=== PATIENT | male | born 1985 | race Caucasian/White ===

== ENCOUNTER 2023-03-16 09:26 | Outpatient (AMB) | payer OTHER, SELFPAY ==
--- NOTE | 2023-03-16 09:38 | HO.NEPHOV_ITS ---
HPI HPI Comments History of Present Illness Details Yoan was seen in the office for follow-up of his hypertension. He has history of hypercalcemia and was found to have primary hyperparathyroidism. He underwent parathyroidectomy. At that time he also was found to have thyroid cancer which was taken out. He does not have any further nephrolithiasis. He is followed up by Dr. Frost. His blood pressure has been better. His weight is stable. He tries to comply with low-sodium diet. He denies chest pain, shortness of breath, nausea, vomiting, diarrhea, orthostatic symptoms, hematuria or pedal edema. He is compliant with his medications. He otherwise feels well. [facility] Medical History (Updated 03/30/23 @ 20:49 by Nigel Eli MD) Double ureter Hypercalcemia Renal calculus Essential (primary) hypertension Surgical History (Updated 03/16/23 @ 09:43 by Narda Carreno MA) History of kidney surgery History of thyroid surgery Family History (Updated 03/16/23 @ 09:43 by Narda Carreno MA) Father Diabetes Mother Hypertension Social History (Updated 03/16/23 @ 09:43 by Narda Carreno MA) Alcohol intake: never Patient Tobacco Use Status: Never used Tobacco Vital Signs 03/16/23 09:39 Height 5 ft 10 in Weight 272 lb 2 oz BMI 39.0 BP 148/90 H Blood Pressure Location Rt brachial Position Sitting Pulse 67 Pulse Source Pulse Oximeter Physical Exam Vital Signs: Last Vital Signs Pulse 67 03/16/23 09:39 BP 148/90 H 03/16/23 09:39 BMI result Body Mass Index 39.0 Const General: comfortable and no acute distress Orientation/consciousness: patient oriented x3 HEENT Head: Yes normocephalic Mouth: Normal oral and palatal mucosa present Eyes EOM: EOMs intact bilaterally Neck Neck: Yes supple Resp Auscultation: clear to auscultation bilaterally Cardio Jugular venous distension: no JVD Rate: regular rate GI Palpation (GI): Soft to palpation Auscultation: normal bowel sounds General: Yes no CVA tenderness Back/Spine/Pelvis Back: no CVA tenderness Skin General skin exam: no rashes or lesions noted Neuro General: patient oriented x3 and moves all extremities Extrem General: Yes no pedal edema Assessment & Plan Assessment & Plan (1) Renal calculus: Code(s): N20.0 - Calculus of kidney (2) Essential (primary) hypertension: Code(s): I10 - Essential (primary) hypertension (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 He underwent parathyroidectomy and thyroid cancer excision. His weight is stable. He needs to lose more weight. He needs to be compliant with low-sodium diet. He should maintain good hydration. He follows up with Endocrinology. I may add chlorthalidone and or potassium citrate with time after monitoring serum calcium. His sleep study was negative. He does not have any recurrence of or renal calculus. I shall arrange a renal ultrasound follow-up in the coming visits looking for renal calculus. He needs to increase the citrate in the diet. I did not make any medication changes today. Follow-up lab work ordered. Answered all questions. Follow-up given. Orders: Orders Vitamin D 25-OH Total 03/16/23 N20.0 - Calculus of kidney, I10 - Essential (primary) hypertension Blood Urea Nitrogen 03/16/23 N20.0 - Calculus of kidney, I10 - Essential (primary) hypertension Creatinine 03/16/23 N20.0 - Calculus of kidney, I10 - Essential (primary) hypertension Calcium 03/16/23 N20.0 - Calculus of kidney, I10 - Essential (primary) hypertens ion Parathyroid Hormone Intact 03/16/23 N20.0 - Calculus of kidney, I10 - Essential (primary) hypertension Electrolytes 03/16/23 N20.0 - Calculus of kidney, I10 - Essential (primary) hypertension Coding Level of Care Code Est Pt Level 4 (15910) Diagnoses Renal calculus N20.0 Essential (primary) hypertension I10 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 Results Reviewed Nephrology Results: No Data to Display
[2023-03-16 09:39] VITALS: BP 148/90; PULSE 67; BMI 39.0
== END 2023-03-16 10:11 | disposition home or self-care (01) ==
PROVIDERS: PCP Internal Medicine; Visit Provider Internal Medicine Nephrology
DX: N20.0 Calculus of kidney (principal); I10 Essential (primary) hypertension; Q62.8 Other congenital malformations of ureter
CPT/HCPCS: 99214

== ENCOUNTER → 2023-03-16 09:26 | Outpatient (BNVA) | payer OTHER, SELFPAY | PROVIDERS: PCP Internal Medicine; Visit Provider Internal Medicine Nephrology ==

== ENCOUNTER 2023-05-19 09:46 | Outpatient (AMB) | payer OTHER, SELFPAY ==
[2023-05-19 09:49] VITALS: BP 126/88; PULSE 66; O2SAT 98; BMI 39.1
--- NOTE | 2023-05-19 09:49 | MHC.OFFVIS ---
Intake Vital Signs 05/19/23 09:49 Height 5 ft 10 in Weight 272 lb 6 oz BMI 39.1 BP 126/88 Blood Pressure Location Rt brachial Position Sitting Pulse 66 Pulse Source Pulse Oximeter Pulse Oximetry (%) 98 Oxygen Delivery Method Room Air Intake Visit Reasons: 2 mo fu/ LVM Intake Note: Pt presents to the office today for a 2 month follow up. Pt states he is feeling overall well and denies any major concerns at this time. Allergies No Known Allergies Allergy (Verified 05/19/23 09:51) HPI HPI Comments History of Present Illness Details Yoan was seen in the office for follow-up of his hypertension. He has history of hypercalcemia and was found to have primary hyperparathyroidism. He underwent parathyroidectomy. At that time he also was found to have thyroid cancer which was taken out. He does not have any further nephrolithiasis. He is followed up by Dr. Frost. His blood pressure has been better. His weight is stable. He tries to comply with low-sodium diet. He denies chest pain, shortness of breath, nausea, vomiting, diarrhea, orthostatic symptoms, hematuria or pedal edema. He is compliant with his medications. He is known to have ectopic duplex ureters. He otherwise feels well [facility] Medical History Double ureter Hypercalcemia Renal calculus Essential (primary) hypertension Surgical History History of kidney surgery History of thyroid surgery Family History Father Diabetes Mother Hypertension Social History Alcohol intake: never Patient Tobacco Use Status: Never used Tobacco Physical Exam Vital Signs: Last Vital Signs Pulse 66 05/19/23 09:49 BP 126/88 05/19/23 09:49 Pulse Ox 98 05/19/23 09:49 Oxygen Delivery Method Room Air 05/19/23 09:49 BMI result Body Mass Index 39.1 Const General: comfortable and no acute distress Orientation/consciousness: patient oriented x3 HEENT Head: Yes normocephalic Mouth: Normal oral and palatal mucosa present Eyes EOM: EOMs intact bilaterally Neck Neck: Yes supple Resp Auscultation: clear to auscultation bilaterally Cardio Jugular venous distension: no JVD Rate: regular rate GI Palpation (GI): Soft to palpation Auscultation: normal bowel sounds General: Yes no CVA tenderness Back/Spine/Pelvis Back: no CVA tenderness Skin General skin exam: no rashes or lesions noted Neuro General: patient oriented x3 and moves all extremities Extrem General: Yes no pedal edema Assessment & Plan Assessment & Plan (1) 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 He underwent parathyroidectomy and thyroid cancer excision. His weight is stable. He needs to lose more weight. He needs to be compliant with low-sodium diet. He should maintain good hydration. He follows up with Endocrinology. I may add chlorthalidone and or potassium citrate with time after monitoring serum calcium. His sleep study was negative. He does not have any recurrence of or renal calculus. He had a renal ultrasound by Dr Frost in Mar 2023 and was told that he has no stones. I did not make any medication changes today. Follow-up lab work ordered. Answered all questions. Follow-up given. Coding Level of Care Code Est Pt Level 3 (50700) Diagnoses 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 Renal calculus N20.0 Essential (primary) hypertension I10
== END 2023-05-19 10:17 | disposition home or self-care (01) ==
PROVIDERS: PCP Internal Medicine; Visit Provider Internal Medicine Nephrology
DX: Q62.8 Other congenital malformations of ureter (principal); N20.0 Calculus of kidney; I10 Essential (primary) hypertension
CPT/HCPCS: 99213

== ENCOUNTER → 2023-05-19 09:46 | Outpatient (BNVA) | payer OTHER, SELFPAY | PROVIDERS: PCP Internal Medicine; Visit Provider Internal Medicine Nephrology ==

== ENCOUNTER 2023-11-17 09:26 | Outpatient (AMB) | payer OTHER, SELFPAY ==
--- NOTE | 2023-11-17 09:31 | HO.NEPHOV_ITS ---
Vital Signs 11/17/23 09:32 Height 5 ft 10 in Weight 265 lb BMI 38.0 BP 130/90 H Blood Pressure Location Lt brachial Position Sitting Pulse 71 Pulse Source Pulse Oximeter Pulse Oximetry (%) 98 Oxygen Delivery Method Room Air Intake Visit Reasons: 6 mon follow up/ LVM Lapel Baster Required: No Accompanied by: Self / Same As Patient Allergies No Known Allergies Allergy (Verified 11/17/23 09:34) HPI Comments Details: Yoan was seen in the office for follow-up of his hypertension. He has history of hypercalcemia and was found to have primary hyperparathyroidism. He underwent parathyroidectomy. At that time he also was found to have thyroid cancer which was taken out. He does not have any further nephrolithiasis. He is followed up by Dr. Frost. His blood pressure has been better. His weight is stable. He tries to comply with low-sodium diet. He denies chest pain, shortness of breath, nausea, vomiting, diarrhea, orthostatic symptoms, hematuria or pedal edema. He is compliant with his medications. He is known to have ectopic duplex ureters. He otherwise feels well [facility] Medical History Double ureter Hypercalcemia Renal calculus Essential (primary) hypertension Surgical History History of kidney surgery History of thyroid surgery Family History Father Diabetes Mother Hypertension Social History Alcohol intake: never Patient Tobacco Use Status: Never used Tobacco Review of Systems Const All systems reviewed & are unremarkable except as noted in HPI and below Physical Exam Vital Signs: Last Vital Signs Pulse 71 11/17/23 09:32 BP 136/100 H 11/17/23 09:32 Pulse Ox 98 11/17/23 09:32 Oxygen Delivery Method Room Air 11/17/23 09:32 BMI result Body Mass Index 38.0 Const General: comfortable and no acute distress Orientation/consciousness: patient oriented x3 HEENT Head: Yes normocephalic Mouth: Normal oral and palatal mucosa present Eyes EOM: EOMs intact bilaterally Neck Neck: Yes supple Resp Auscultation: clear to auscultation bilaterally Cardio Jugular venous distension: no JVD Rate: regular rate GI Palpation (GI): Soft to palpation Auscultation: normal bowel sounds General: Yes no CVA tenderness Back/Spine/Pelvis Back: no CVA tenderness Skin General skin exam: no rashes or lesions noted Neuro General: patient oriented x3 and moves all extremities Extrem General: Yes no pedal edema Results Reviewed Nephrology Results: No Data to Display Assessment & Plan Assessment & Plan (1) Essential (primary) hypertension: Code(s): I10 - Essential (primary) hypertension Category: Medical (2) Renal calculus: Code(s): N20.0 - Calculus of kidney Category: Medical (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 He underwent parathyroidectomy and thyroid cancer excision. His weight is stable. He needs to lose more weight. He needs to be compliant with low-sodium diet. He should maintain good hydration. He follows up with Endocrinology. I may add chlorthalidone and or potassium citrate with time after monitoring serum calcium. His sleep study was negative. He does not have any recurrence of or renal calculus. He had a renal ultrasound by Dr Frost in Mar 2023 and was told that he has no stones. I did not make any medication changes today. Follow-up lab work ordered. Answered all questions. Follow-up given. Orders: Orders Blood Urea Nitrogen Today I10 - Essential (primary) hypertension, N20.0 - Calculus of kidney, Q62.8 - Other congenital malformations of ureter Electrolytes Today I10 - Essential (primary) hypertension, N20.0 - Calculus of kidney, Q62.8 - Other congenital malformations of ureter Creatinine Today I10 - Essential (primary) hypertension, N20.0 - Calculus of kidney, Q62.8 - Other congenital malformations of ureter Calcium Today I10 - Essential (primary) hypertension, N20.0 - Calculus of kidney, Q62.8 - Other congenital malformations of ureter Parathyroid Hormone Intact Today I10 - Essential (primary) hypertension, N20.0 - Calculus of kidney, Q62.8 - Other congenital malformations of ureter Coding Level of Care Code Est Pt Level 4 (86977) Diagnoses Essential (primary) hypertension I10 Renal calculus N20.0 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
[2023-11-17 09:32] VITALS: BP 130/90; PULSE 71; O2SAT 98; BMI 38.0
== END 2023-11-17 09:57 | disposition home or self-care (01) ==
PROVIDERS: PCP Internal Medicine; Visit Provider Internal Medicine Nephrology
DX: I10 Essential (primary) hypertension (principal); N20.0 Calculus of kidney; Q62.8 Other congenital malformations of ureter
CPT/HCPCS: 99214

== ENCOUNTER → 2023-11-17 09:26 | Outpatient (BNVA) | payer OTHER, SELFPAY | PROVIDERS: PCP Internal Medicine; Visit Provider Internal Medicine Nephrology ==

== ENCOUNTER 2024-05-19 09:37 | Outpatient (AMB) | payer OTHER, SELFPAY ==
--- NOTE | 2024-05-19 09:36 | HO.NEPHOV_ITS ---
Vital Signs 05/19/24 09:39 Height 5 ft 10 in Weight 261 lb 4 oz BMI 37.5 BP 130/80 Blood Pressure Location Rt brachial Position Sitting Pulse 66 Pulse Source Pulse Oximeter Pulse Oximetry (%) 95 Oxygen Delivery Method Room Air Intake Visit Reasons: Duplex ectopic ureters/ LVM Driveway Attendant Required: No Accompanied by: Self / Same As Patient Allergies No Known Allergies Allergy (Verified 05/19/24 09:39) HPI Comments Details: Yoan was seen in the office for follow-up of his hypertension. He has history of hypercalcemia and was found to have primary hyperparathyroidism. He underwent parathyroidectomy. At that time he also was found to have thyroid cancer which was taken out. He does not have any further nephrolithiasis. He is followed up by Dr. Frost. His blood pressure has been better. His weight is stable. He tries to comply with low-sodium diet. He denies chest pain, shortness of breath, nausea, vomiting, diarrhea, orthostatic symptoms, hematuria or pedal edema. He is compliant with his medications. He is known to have ectopic duplex ureters. He otherwise feels well [facility] Medical History Double ureter Hypercalcemia Renal calculus Essential (primary) hypertension Surgical History History of kidney surgery History of thyroid surgery Family History Father Diabetes Mother Hypertension Social History Alcohol intake: never Patient Tobacco Use Status: Never used Tobacco Review of Systems Const All systems reviewed & are unremarkable except as noted in HPI and below Physical Exam Vital Signs: Last Vital Signs Pulse 66 05/19/24 09:39 BP 150/100 H 05/19/24 09:39 Pulse Ox 95 05/19/24 09:39 Oxygen Delivery Method Room Air 05/19/24 09:39 BMI result Body Mass Index 37.5 Const General: comfortable and no acute distress Orientation/consciousness: patient oriented x3 HEENT Head: Yes normocephalic Mouth: Normal oral and palatal mucosa present Eyes EOM: EOMs intact bilaterally Neck Neck: Yes supple Resp Auscultation: clear to auscultation bilaterally Cardio Jugular venous distension: no JVD Rate: regular rate GI Palpation (GI): Soft to palpation Auscultation: normal bowel sounds General: Yes no CVA tenderness Back/Spine/Pelvis Back: no CVA tenderness Skin General skin exam: no rashes or lesions noted Neuro General: patient oriented x3 and moves all extremities Extrem General: Yes no pedal edema Results Reviewed Nephrology Results: No Data to Display Assessment & Plan Assessment & Plan (1) Essential (primary) hypertension: Code(s): I10 - Essential (primary) hypertension Category: Medical (2) Renal calculus: Code(s): N20.0 - Calculus of kidney Category: Medical (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 He underwent parathyroidectomy and thyroid cancer excision. His weight is stable. He needs to lose more weight. He needs to be compliant with low-sodium diet. He should maintain good hydration. He follows up with Endocrinology. I may add chlorthalidone and or potassium citrate with time after monitoring serum calcium. His sleep study was negative. He does not have any recurrence of or renal calculus. He had a renal ultrasound by Dr Frost in Mar 2023 and was told that he has no stones. I did not make any medication changes today. Follow-up lab work ordered. Answered all questions. 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
[2024-05-19 09:39] VITALS: BP 130/80; PULSE 66; O2SAT 95; BMI 37.5
--- OUTSIDE RECORDS SUMMARY | 2024-05-19 09:39 | XMS_ITS | Encounter Summary ---
Author Organization [facility] Address [address] [place] [address] Phone Care Team Providers Care Provider Relations Rep Name Role Phone Juancarlos Kline DO Primary Care Provider [phone] Reason for Visit * Reason Comments Med Refill Encounter Details Date Type Department Care Team (Late st Contact Info) Description 12/21/2022 Refill [facility] [address] [place] [id number] Nigel Eli MD Social History Tobacco Use Types Packs/Day Years Used Date Smoking Tobacco: Never Smokeless Tobacco: Never Alcohol Use Standard Drinks/Week Comments Yes 0 (1 standard drink = 0.6 oz pure alcohol) Alcoholic Drinks/day: Occasional social drink Sex and Gender Information Value Date Recorded Sex Assigned at Not on file Legal Sex Male 4:49 PM EST Gender Identity Not on file Sexual Orientation Not on file documented as of this encounter Plan of Treatment Not on file documented as of this encounter Visit Diagnoses Not on filedocumented in this encounter Care Teams Provider Relations Rep Relationship Specialty Start Date End Date Juancarlos Kline DO [address] [place] [address] PCP - General 04/23/20 documented as of this encounter
--- OUTSIDE RECORDS SUMMARY | 2024-05-19 09:40 | XMS_ITS | Clinical Summary ---
Author Organization [facility] Address [address] [facility] [address] [place] [address] Phone Care Team Providers Care Aircraft Dispatcher Name Role Phone Juancarlos Kline DO Primary Care Provider Allergies No known active allergies Medications metoprolol tartrate (LOPRESSOR) 50 MG tablet Take 1 tablet (50 mg total) by mouth in the morning and 1 tablet (50 mg total) in the evening. 90 tablet 5 07/30/2021 Active cetirizine (ZyrTEC) 10 MG tablet Take 10 mg by mouth 1 (one) time each day Active Cholecalciferol (Vitamin D3) 125 MCG (5000 UT) chewable tablet Chew Active losartan (COZAAR) 100 MG tablet Take 1 tablet (100 mg total) by mouth at bed time 90 tablet 3 12/29/2022 Active Active Problems Problem Noted Date Diagnosed Date Testosterone level below reference range 023 Obesity 08/28/2022 Renal calculus 07/02/2021 Hypertension 04/08/2021 Double ureter 01/10/2021 Essential hypertension 01/10/2021 Hypercalcemia 01/10/2021 Large kidney 01/10/2021 Acute conjunctivitis of left eye 12/05/2020 Family History Medical History Relation Comments Diabetes Father Hypertension Mother Diabetes Sibling Relation Status Comments Father Alive Mother Sibling Social History Tobacco Use Types Packs/Day Years Used Date Smoking Tobacco: Never Smokeless Tobacco: Never Tobacco Cessation:Counseling Given: Not Answered Alcohol Use Standard Drinks/Week Comments Yes 0 (1 standard drink = 0.6 oz pure alcohol) Alcoholic Drinks/day: Occasional social drink Sex and Gender Information Value Date Recorded Sex Assigned at Not on file Legal Sex Male 4:49 PM EST Gender Identity Not on file Sexual Orientation Not on file Last Filed Vital Signs Vital Sign Reading Time Taken Comments Blood Pressure 132/88 08/28/2022 4:23 PM EDT Pulse 67 08/28/2022 4:23 PM EDT Temperature - - Respiratory Rate - - Oxygen Saturation 99% 02/24/2022 2:27 PM EST Inhaled Oxygen Concentration - - Weight 120 kg (265 lb 9.6 oz) 08/28/2022 4:23 PM EDT Height 177.8 cm (5' 10 ) 02/24/2022 2:27 PM EST Body Mass Index 38.11 02/24/2022 2:27 PM EST Plan of Treatment Health Maintenance Due Date Last Done Comments Pneumococcal Vaccine: Pediat rics (0 to 5 Years) and At-Risk Patients (6 to 64 Years) (1 of 2 - PCV) 01/25/1992 Hepatitis B Vaccine (1 of 3 - 19+ 3-dose series) 01/24 Influenza Vaccine (#1) 2023 Insurance [employer] Care Teams Aircraft Dispatcher Relationship Specialty Start Date End Date Juancarlos Kline DO [address] [place] [address] [place] PCP - General 04/23/20
--- OUTSIDE RECORDS SUMMARY | 2024-05-19 09:40 | XMS_ITS | Encounter Summary ---
Author Organization [facility] Address [address] [place] [address] Phone Care Team Providers Care Motion Picture Set Worker Name Role Phone Juancarlos Kline DO Primary Care Provider [phone] Encounter Details Date Type Department Care Team (Late st Contact Info) Description 07/15/2021 Telephone [facility] [address] [place] [address] Nigel Eli MD Social History Tobacco Use [...] on file documented as of this encounter Miscellaneous Notes * Telephone Encounter - Carrie Bess - 07/15/2021 1:38 PM EDT Pt called, he would like to review the findings from his CT scan on 07/12/21 with you. Please call him back at [phone] Thank you documented in this encounter Plan of Treatment Not on file documented as of this encounter Visit Diagnoses Not on filedocumented in this encounter Care Teams Motion Picture Set Worker Relationship Specialty Start Date End Date Juancarlos Kline DO [address] [place] [address] PCP - General 04/23/20 documented as of this encounter
--- OUTSIDE RECORDS SUMMARY | 2024-05-19 09:40 | XMS_ITS | Clinical Summary ---
Author Organization [facility] Address [address] [place] [address] Care Team Providers Care Boat Dispatcher Name Role Phone Unavailable Primary Care Provider Unavailabl e Social History Tobacco Use Types Packs/Day Years Used Date Smoking Tobacco: Never Assessed Sex and Gender Information Value Date Recorded Sex Assigned at Not on file Gender Identity Not on file Sexual Orientation Not on file Plan of Treatment Health Maintenance Due Date Last Done Comments DTaP,Tdap,and Td Vaccines (1 - Tdap) 2005 Hepatitis B Vaccines (1 of 3 - 19+ 3-dose series) 2005 Cholesterol Screening (Lipid Panel) 03/15/2022 Depression Screening 03/15/2022 HIV Screening 03/15/2022 Hepatitis C Screening 03/15/2022 Social Influencers of Health Screening 03/15/2022 COVID-19 Vaccine (2023-2 5 season) 2023 Influenza Vaccine (#1) 2023 HIB Vaccines Aged Out No longer eligi ble based on patient's age to complete this topic HPV Vaccines Aged Out No longer eligi ble based on patient's age to complete this topic Hepatitis A Vaccines Aged Out No long er eligible based on patient's age to complete this topic IPV Vaccines Aged Out No longer eligi ble based on patient's age to complete this topic MMR Vaccines Aged Out No longer eligi ble based on patient's age to complete this topic Meningococcal ACWY Vaccine Aged Out N o longer eligible based on patient's age to complete this topic Pneumococcal Vaccine: Pediat rics (0 to 5 Years) and At-Risk Patients (6 to 64 Years) Aged Out No longer eligible b ased on patient's age to complete this topic RSV Immunization Patients Un beny 20 months Aged Out No longer eligible b ased on patient's age to complete this topic Varicella Vaccines Aged Out No longer eligible based on patient's age to complete this topic
== END 2024-05-19 09:56 | disposition home or self-care (01) ==
LOC: HO.HKAS 09:37
PROVIDERS: PCP Internal Medicine; Visit Provider Internal Medicine Nephrology
DX: I10 Essential (primary) hypertension (principal); N20.0 Calculus of kidney; Q62.8 Other congenital malformations of ureter
CPT/HCPCS: 99214

== ENCOUNTER 2024-12-08 10:19 | Outpatient (AMB) | payer OTHER, SELFPAY ==
--- NOTE | 2024-12-08 10:26 | HO.NEPHOV_ITS ---
Vital Signs 12/08/24 10:28 Height 5 ft 10 in Weight 267 lb BMI 38.3 BP 130/90 H Blood Pressure Location Lt brachial Position Sitting Pulse 59 Pulse Source Pulse Oximeter Pulse Oximetry (%) 99 Oxygen Delivery Method Room Air Intake Visit Reasons: Duplex ectopic ureters-LVM Manager Solution Required: No Accompanied by: Self / Same As Patient Allergies No Known Allergies Allergy (Verified 12/08/24 10:27) HPI Comments Details: Yoan was seen in the office for follow-up of his hypertension. He has history of hypercalcemia and was found to have primary hyperparathyroidism. He underwent parathyroidectomy. At that time he also was found to have thyroid cancer which was taken out. He does not have any further nephrolithiasis. He is followed up by Dr. Frost. His blood pressure has been better. He tries to comply with low-sodium diet. He denies chest pain, shortness of breath, nausea, vomiting, diarrhea, orthostatic symptoms, hematuria or pedal edema. He is compliant with his medications. He is known to have ectopic duplex ureters. He otherwise feels well FOR[facility] Medical History Double ureter Hypercalcemia Renal calculus Essential (primary) hypertension Surgical History History of kidney surgery History of thyroid surgery Family History Father Diabetes Mother Hypertension Social History Alcohol intake: never Patient Tobacco Use Status: Never used Tobacco Review of Systems Const All systems reviewed & are unremarkable except as noted in HPI and below Physical Exam Const General: comfortable and no acute distress Orientation/consciousness: patient oriented x3 HEENT Head: Yes normocephalic Mouth: Normal oral and palatal mucosa present Eyes EOM: EOMs intact bilaterally Neck Neck: Yes supple Resp Auscultation: clear to auscultation bilaterally Cardio Jugular venous distension: no JVD Rate: regular rate GI Palpation (GI): Soft to palpation Auscultation: normal bowel sounds General: Yes no CVA tenderness Back/Spine/Pelvis Back: no CVA tenderness Skin General skin exam: no rashes or lesions noted Neuro General: patient oriented x3 and moves all extremities Extrem General: Yes no pedal edema Assessment & Plan Assessment & Plan (1) Essential (primary) hypertension: Code(s): I10 - Essential (primary) hypertension Category: Medical (2) Renal calculus: Code(s): N20.0 - Calculus of kidney Category: Medical (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 He underwent parathyroidectomy and thyroid cancer excision. He needs to lose more weight. He needs to be compliant with low-sodium diet. He should maintain good hydration. He follows up with Endocrinology. I may add chlorthalidone and or potassium citrate with time after monitoring serum calcium. His sleep study was negative. He does not have any recurrence of or renal calculus. He had a renal ultrasound by Dr Frost in Mar 2023 and was told that he has no stones. I did not make any medication changes today. Follow-up lab work ordered. Answered all questions. Follow-up given Orders: Orders Blood Urea Nitrogen 6 Months I10 - Essential (primary) hypertension, N20.0 - Calculus of kidney, Q62.8 - Other congenital malformations of ureter Electrolytes 6 Months I10 - Essential (primary) hypertension, N20.0 - Calculus of kidney, Q62.8 - Other congenital malformations of ureter Creatinine 6 Months I10 - Essential (primary) hypertension, N20.0 - Calculus of kidney, Q62.8 - Other congenital malformations of ureter Coding Level of Care Code Est Pt Level 4 (76356) Diagnoses Essential (primary) hypertension I10 Renal calculus N20.0 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
[2024-12-08 10:28] VITALS: BP 130/90; PULSE 59; O2SAT 99; BMI 38.3
--- OUTSIDE RECORDS SUMMARY | 2024-12-08 11:39 | XMS_ITS | Clinical Summary ---
Author Organization [facility] Address [address] [facility] [address] [place] [address] Phone Care Team Providers Care Supervisor Polishing Name Role Phone Juancarlos Kline DO Primary Care Provider [phone] Allergies No known active allergies Medications metoprolol [...] Health Maintenance Due Date Last Done Comments Hepatitis B Vaccine (1 of 3 - 19+ 3-dose series) 01/24 Pneumococcal Vaccine: Peds ( 0 to 5 Years) and At-Risk Patients (6 to 49 Years) (1 of 2 - PCV) 2005 Influenza Vaccine (#1) 2024 Insurance [email or web address] Care Teams Supervisor Polishing Relationship Specialty Start Date End Date Juancarlos Kline DO [address] [place] [address] [place] PCP - General 04/23/20
--- OUTSIDE RECORDS SUMMARY | 2024-12-08 11:39 | XMS_ITS | Clinical Summary ---
Author Organization [facility] ity Address [address] [place] [address] Care Team Providers Care Occupational Therapy Technician Name Role Phone Unavailable Primary Care Provider Unavailabl e Social History Tobacco Use Types Packs/Day Years Used Date Smoking Tobacco: Never Assessed Sex and Gender Information Value Date Recorded Sex Assigned at Not on file Legal Sex Male 5:25 PM EST Gender Identity Not on file Sexual Orientation Not on file Plan of Treatment Health Maintenance Due Date Last Done Comments DTaP,Tdap,and Td Vaccines (1 - Tdap) 2005 Hepatitis B Vaccines (1 of 3 - 19+ 3-dose series) 2005 COVID-19 Vaccine ( - 2023-2 5 season) 2023 Depression Screening 04/13/2024 Influenza Vaccine (#1) 2024 HIB Vaccines Aged Out No longer eligi [...] patient's age to complete this topic Meningococcal B Vaccine Aged Out No l onger eligible based on patient's age to complete this topic Pneumococcal Vaccine: Pediat rics (0 to 5 Years) and At-Risk Patients (6 to 49 Years) Aged Out No longer eligible b ased on patient's age to complete this topic RSV Immunization Patients Un beny 20 months Aged Out No longer eligible b ased on patient's age to complete this topic Varicella Vaccines Aged Out No longer eligible based on patient's age to complete this topic
--- OUTSIDE RECORDS SUMMARY | 2024-12-08 11:39 | XMS_ITS | Encounter Summary ---
Author Organization [facility] Address [address] [place] [address] Phone Care Team Providers Care Silk Crepe Machine Operator Name Role Phone Juancarlos Kline DO Primary Care Provider [phone] Encounter Details Date Type Department Care Team (Late st Contact Info) Description 07/15/2021 Telephone [facility] [address] [place] [address] Nigel Eli MD Social History [...] with you. Please call him back at [phone] Thank you documented in this encounter Plan of Treatment Not on file documented as of this encounter Visit Diagnoses Not on filedocumented in this encounter Care Teams Silk Crepe Machine Operator Relationship Specialty Start Date End Date Juancarlos Kline DO [address] [place] [address] PCP - General 04/23/20 documented as of this encounter
--- OUTSIDE RECORDS SUMMARY | 2024-12-08 11:39 | XMS_ITS | Encounter Summary ---
Author Organization [facility] Address [address] [place] [address] Phone Care Team Providers Care Netsuite Consultant Name Role Phone Juancarlos Kline DO Primary Care Provider [phone] Reason for Visit * Reason Comments Med Refill Encounter Details Date Type Department Care Team (Late st Contact Info) Description 12/21/2022 Refill [facility] [address] [place] [id number] Nigel Eli MD Social History Tobacco Use [...] on filedocumented in this encounter Care Teams Netsuite Consultant Relationship Specialty Start Date End Date Juancarlos Kline DO [address] [place] [address] PCP - General 04/23/20 documented as of this encounter
== END 2024-12-08 10:51 | disposition home or self-care (01) ==
LOC: HO.HKAS 10:20
PROVIDERS: PCP Internal Medicine; Visit Provider Internal Medicine Nephrology
DX: I10 Essential (primary) hypertension (principal); N20.0 Calculus of kidney; Q62.8 Other congenital malformations of ureter
CPT/HCPCS: 99214